=== PATIENT | male | born 1970 | race Two or more races ===

== ENCOUNTER → 2016-11-23 | Outpatient (CLI) | payer OTHER ==
--- NOTE | 2016-11-23 16:34 | REP ---
Chest two views HISTORY: Cigarette smoker Comparison: None The lungs are clear. The heart is normal in size. The pulmonary vasculature is normal in appearance. There is an old healed fracture of the left clavicle. There is an old compression fracture of a lower thoracic vertebral body. IMPRESSION: No acute disease. Signed by Julián Bueno MD 11/23/2016 04:26 P
== END ==
LOC: M ADAMS 15:17
PROVIDERS: ATTEND Physician Assistant Medical
DX: Z12.2 Encounter for screening for malignant neoplasm of respiratory organs (principal); F17.219 Nicotine dependence, cigarettes, with unspecified nicotine-induced disorders

== ENCOUNTER → 2016-11-23 | Outpatient (REF) | payer OTHER ==
[2016-11-23 20:11] LABS: ALBUMIN 4.3 GM/DL (3.2-5.2); ALBUMIN/GLOBULIN RATIO 1.26 (1.00-1.93); ALKALINE PHOSPHATASE 96 U/L (45-117); ALT/SGPT 20 U/L (12-78); ANION GAP 6 MEQ/L (8-16); AST/SGOT 13 U/L (15-37); BILIRUBIN,TOTAL 0.4 MG/DL (0.2-1.0); BLOOD UREA NITROGEN 12 MG/DL (7-18); CALCIUM LEVEL 9.2 MG/DL (8.5-10.1); CARBON DIOXIDE LEVEL 28 MEQ/L (21-32); CHLORIDE LEVEL 107 MEQ/L (98-107); CHOLESTEROL LEVEL 224 MG/DL (<200); CREATININE FOR GFR 1.04 MG/DL (0.70-1.30); FREE T4 1.09 NG/DL (0.76-1.46); GLOMERULAR FILTRATION RATE > 60.0 (>60); GLUCOSE, FASTING 99 MG/DL (70-105); POTASSIUM SERUM 4.1 MEQ/L (3.5-5.1); SODIUM LEVEL 141 MEQ/L (136-145); TOTAL PROTEIN 7.7 GM/DL (6.4-8.2); TRIGLYCERIDES LEVEL 207 MG/DL (<150)
[2016-11-23 20:20] LABS: BASO % 0.4 % (0.0-1.0); EOS # 0.1 K/mm3 (0.0-0.50); EOS % 1.3 % (0.0-3.0); LARGE UNSTAINED CELL # 0.1 K/mm3 (0.0-0.4); LARGE UNSTAINED CELL % 1.2 % (0.0-4.0); LYMPH # 1.5 K/mm3 (1.5-4.5); LYMPH % 18.4 % (24.0-44.0); MEAN CORPUSCULAR HEMOGLOBIN 31.3 pg (27.0-33.0); MEAN CORPUSCULAR HGB CONC 34.3 g/dl (32.0-36.5); MEAN CORPUSCULAR VOLUME 91.3 fl (80.0-96.0); MONO # 0.7 K/mm3 (0.0-0.8); MONO % 9.3 % (0.0-5.0); NEUTROPHILS # 5.4 K/mm3 (1.8-7.7); NEUTROPHILS % 69.3 % (36.0-66.0); PLATELET COUNT, AUTOMATED 270 k/mm3 (150-450); WHITE BLOOD COUNT 7.8 K/mm3 (4.0-10.0)
== END ==
LOC: M SFHCADAM 15:15
PROVIDERS: ATTEND Physician Assistant Medical
DX: R03.0 Elevated blood-pressure reading, without diagnosis of hypertension (principal); F17.219 Nicotine dependence, cigarettes, with unspecified nicotine-induced disorders; R06.09 Other forms of dyspnea

== ENCOUNTER → 2020-08-26 | Outpatient (CLI) | payer BC, OTHER ==
--- NOTE | 2020-08-27 07:52 | REP ---
INDICATION: SOB COMPARISON: 11/23/2016 TECHNIQUE: PA and lateral. FINDINGS: The mediastinum and cardiac silhouette are normal. The lung tiwari are clear and without acute consolidation, effusion, or pneumothorax. The skeletal structures are intact and normal. IMPRESSION: No acute cardiopulmonary process. <Electronically signed by Jonathan Holley > 08/27/20 0721
== END ==
LOC: M ADAMS 15:42
PROVIDERS: ATTEND Physician Assistant Medical
DX: R06.02 Shortness of breath (principal)

== ENCOUNTER → 2020-09-13 | Outpatient (CLI) | payer BC ==
[2020-09-13 11:55] LABS: BASO % 0.6 % (0.0-1.0); EOS # 0.3 10^3/uL (0.0-0.5); EOS % 3.5 % (0.0-3.0); HEMATOCRIT 42.8 % (42.0-52.0); HEMOGLOBIN 14.7 g/dl (13.5-17.5); LYMPH # 2.2 10^3/uL (1.5-5.0); MEAN CORPUSCULAR HEMOGLOBIN 31.2 pg (27.0-33.0); MEAN CORPUSCULAR HGB CONC 34.3 g/dl (32.0-36.5); MEAN CORPUSCULAR VOLUME 90.9 fl (80.0-96.0); MONO % 13.9 % (2.0-8.0); NEUTROPHILS # 3.6 10^3/uL (1.5-8.5); NEUTROPHILS % 50.6 % (36.0-66.0); PLATELET COUNT, AUTOMATED 278 10^3/uL (150-450); RED BLOOD COUNT 4.71 10^6/uL (4.30-6.10); WHITE BLOOD COUNT 7.1 10^3/uL (4.0-10.0)
[2020-09-13 12:35] LABS: ALBUMIN 4.2 GM/DL (3.2-5.2); ALT/SGPT 25 U/L (12-78); BILIRUBIN,TOTAL 0.5 MG/DL (0.2-1.0); BLOOD UREA NITROGEN 16 MG/DL (7-18); CALCIUM LEVEL 9.2 MG/DL (8.5-10.1); CARBON DIOXIDE LEVEL 28 MEQ/L (21-32); CHLORIDE LEVEL 102 MEQ/L (98-107); CHOLESTEROL LEVEL 214 MG/DL (<200); CHOLESTEROL RISK RATIO 5.783 (<5); CREATININE FOR GFR 0.86 MG/DL (0.70-1.30); GLOMERULAR FILTRATION RATE > 60.0 (>56); GLUCOSE, FASTING 110 MG/DL (70-100); HDL CHOLESTEROL 37 MG/DL (>40); LDL CHOLESTEROL 140 MG/DL (<100); NON-HDL-C 177 MG/DL; POTASSIUM SERUM 4.7 MEQ/L (3.5-5.1); SODIUM LEVEL 138 MEQ/L (136-145); THYROID STIMULATING HORMONE 0.722 uIU/ML (0.358-3.740); TOTAL PROTEIN 7.5 GM/DL (6.4-8.2); TRIGLYCERIDES LEVEL 183 MG/DL (<150)
[2020-09-16 10:35] LABS: TOTAL 25(OH) VITAMIN D 16.8 NG/ML (30.0-100.0)
== END ==
LOC: M LAB 11:37
PROVIDERS: ATTEND Physician Assistant Medical
DX: E78.2 Mixed hyperlipidemia (principal); E55.9 Vitamin D deficiency, unspecified; I10 Essential (primary) hypertension; F17.219 Nicotine dependence, cigarettes, with unspecified nicotine-induced disorders

== ENCOUNTER → 2020-09-17 | Outpatient (CLI) | payer BC, OTHER ==
--- NOTE | 2020-09-17 14:30 | PFTRPT ---
Height: 67.00 Inches Weight: 215.00 Lbs BSA: 2.09 Diagnosis: R06.02 DATE: 09/17/2020 ORDERED BY: Ayla Saleem PA-C Pre and post bronchodilator studies have excellent technical quality. Forced vital capacity is reduced. FEV1 is out of proportion. Obstructive index is therefore reduced. Expiratory limit of the flow-volume loop consistent with significant flow rate limitation. No bronchodilator response is identified. Total lung capacity is elevated. Residual volume is consistent with air trapping. Diffusing capacity is significantly reduced, but does correct for alveolar volume. No hemoglobin available for correction. Airway resistance and conductance are normal. IMPRESSION: [id number] obstructive ventilatory impairment with underlying air trapping. No bronchodilator response. Diffusing capacity appropriate for alveolar volume. Please correlate clinically. MTDD
== END ==
LOC: M CARPUL 14:02
PROVIDERS: ATTEND Physician Assistant Medical
DX: R06.02 Shortness of breath (principal)

== ENCOUNTER → 2021-03-27 | Outpatient (REF) | payer BC ==
[2021-03-27 16:50] LABS: ALBUMIN 4.6 GM/DL (3.2-5.2); ALT/SGPT 34 U/L (12-78); BILIRUBIN,TOTAL 0.6 MG/DL (0.2-1.0); BLOOD UREA NITROGEN 19 MG/DL (7-18); CALCIUM LEVEL 9.9 MG/DL (8.5-10.1); CARBON DIOXIDE LEVEL 31 MEQ/L (21-32); CHLORIDE LEVEL 99 MEQ/L (98-107); CHOLESTEROL LEVEL 138 MG/DL (<200); CHOLESTEROL RISK RATIO 3.631 (<5); CREATININE FOR GFR 1.04 MG/DL (0.70-1.30); GLOMERULAR FILTRATION RATE > 60.0 (>56); GLUCOSE, FASTING 101 MG/DL (70-100); HDL CHOLESTEROL 38 MG/DL (>40); LDL CHOLESTEROL 62 MG/DL (<100); NON-HDL-C 100 MG/DL; POTASSIUM SERUM 4.2 MEQ/L (3.5-5.1); SODIUM LEVEL 136 MEQ/L (136-145); THYROID STIMULATING HORMONE 0.501 uIU/ML (0.358-3.740); TOTAL PROTEIN 7.7 GM/DL (6.4-8.2); TRIGLYCERIDES LEVEL 190 MG/DL (<150)
== END ==
LOC: M SFHCPLAZ 14:03
PROVIDERS: ATTEND Physician Assistant Medical
DX: I10 Essential (primary) hypertension (principal); F17.219 Nicotine dependence, cigarettes, with unspecified nicotine-induced disorders; E55.9 Vitamin D deficiency, unspecified; E78.2 Mixed hyperlipidemia; K21.9 Gastro-esophageal reflux disease without esophagitis

== ENCOUNTER → 2021-09-25 | Outpatient (REF) | payer BC ==
[2021-09-25 17:14] LABS: ALBUMIN 4.5 GM/DL (3.2-5.2); ALT/SGPT 30 U/L (12-78); BILIRUBIN,TOTAL 0.6 MG/DL (0.2-1.0); BLOOD UREA NITROGEN 14 MG/DL (7-18); CALCIUM LEVEL 9.9 MG/DL (8.5-10.1); CARBON DIOXIDE LEVEL 28 MEQ/L (21-32); CHLORIDE LEVEL 102 MEQ/L (98-107); CHOLESTEROL LEVEL 148 MG/DL (<200); CHOLESTEROL RISK RATIO 4.484 (<5); GLOMERULAR FILTRATION RATE > 60.0 (>56); GLUCOSE, FASTING 98 MG/DL (70-100); HDL CHOLESTEROL 33 MG/DL (>40); LDL CHOLESTEROL 78 MG/DL (<100); NON-HDL-C 115 MG/DL; SODIUM LEVEL 138 MEQ/L (136-145); THYROID STIMULATING HORMONE 0.512 uIU/ML (0.358-3.740); TOTAL 25(OH) VITAMIN D 54.4 NG/ML (30.0-100.0); TOTAL PROTEIN 7.4 GM/DL (6.4-8.2); TRIGLYCERIDES LEVEL 185 MG/DL (<150)
== END ==
LOC: M SFHCADAM 13:56
PROVIDERS: ATTEND Physician Assistant Medical
DX: E78.2 Mixed hyperlipidemia (principal); I10 Essential (primary) hypertension; K21.9 Gastro-esophageal reflux disease without esophagitis

== ENCOUNTER → 2022-05-25 | Outpatient (CLI) | payer BC ==
[~2022-05-25] MED LIST: ACET-897 PO; ALBU8.5H INH; ASCO500C3 PO; ATOR40TA75 PO; CHLO125TA PO; CLAR10CA3 PO; FAMO20TA PO; GALZ50CA PO; INCR1INH INH; LISI20TA33 PO; METO1TAB7 PO; RA M500C PO; VITA200032 PO
== END ==
LOC: M LABSMTC 09:25
PROVIDERS: ATTEND Anesthesiology
DX: Z01.812 Encounter for preprocedural laboratory examination (principal); Z11.52 Encounter for screening for COVID-19

== ENCOUNTER 2022-05-28 07:28 | Day surgery (SDC) | payer BC ==
[~2022-05-28] VITALS: Ht 170.2 cm; Wt 95.7 kg
[~2022-05-28 07:28] MED LIST changes: +NS 1,000 ML IV ONE
[2022-05-28] MEDS ORDERED: LIDOCAINE 2% 100MG/5ML SDV (FOR ANES.) As Ordered ONE (08:14)
[2022-05-28] MEDS ORDERED: propofoL 200 MG/20 ML VIAL As Ordered ONE (08:14)
[2022-05-28] MEDS ORDERED: GLUCAGON INJ 1MG VIAL As Ordered ONE (09:16)
[2022-05-28 09:32] VITALS: BP 132/84
== END 2022-05-28 09:41 | disposition home or self-care (01) ==
LOC: M OPP 07:28
PROVIDERS: ATTEND Internal Medicine Gastroenterology
DX: Z12.11 Encounter for screening for malignant neoplasm of colon (principal); Z80.0 Family history of malignant neoplasm of digestive organs; D12.2 Benign neoplasm of ascending colon; D12.5 Benign neoplasm of sigmoid colon; K57.30 Diverticulosis of large intestine without perforation or abscess without bleeding; K64.8 Other hemorrhoids; I10 Essential (primary) hypertension; E78.00 Pure hypercholesterolemia, unspecified; J44.9 Chronic obstructive pulmonary disease, unspecified; F17.200 Nicotine dependence, unspecified, uncomplicated; Z79.02 Long term (current) use of antithrombotics/antiplatelets; Z79.51 Long term (current) use of inhaled steroids; Z79.899 Other long term (current) drug therapy; Z88.0 Allergy status to penicillin; Z88.6 Allergy status to analgesic agent
CPT/HCPCS: 45385; 88305; J1610

== ENCOUNTER → 2022-10-01 | Outpatient (REF) | payer BC ==
[~2022-10-01] MED LIST changes: -NS 1,000 ML IV ONE
[2022-10-01 14:45] LABS: BASO % 0.5 % (0.0-1.0); EOS # 0.2 10^3/uL (0.0-0.5); EOS % 2.1 % (0.0-3.0); HEMATOCRIT 41.4 % (42.0-52.0); HEMOGLOBIN 14.1 g/dl (13.5-17.5); LYMPH # 2.9 10^3/uL (1.5-5.0); LYMPH % 33.5 % (24.0-44.0); MEAN CORPUSCULAR HEMOGLOBIN 31.3 pg (27.0-33.0); MEAN CORPUSCULAR HGB CONC 34.1 g/dl (32.0-36.5); MEAN CORPUSCULAR VOLUME 91.8 fl (80.0-96.0); MONO # 0.9 10^3/uL (0.0-0.8); MONO % 10.8 % (2.0-8.0); NEUTROPHILS # 4.5 10^3/uL (1.5-8.5); NEUTROPHILS % 52.7 % (36.0-66.0); PLATELET COUNT, AUTOMATED 333 10^3/uL (150-450); RED BLOOD COUNT 4.51 10^6/uL (4.30-6.10); WHITE BLOOD COUNT 8.5 10^3/uL (4.0-10.0)
[2022-10-01 15:15] LABS: ALBUMIN 4.4 G/DL (3.2-5.2); ALKALINE PHOSPHATASE 92 U/L (46-116); ALT/SGPT 36 U/L (7.0-40); AST/SGOT 15 U/L (<34); BILIRUBIN,TOTAL 0.7 MG/DL (0.3-1.2); BLOOD UREA NITROGEN 17 MG/DL (9-23); CALCIUM LEVEL 9.1 MG/DL (8.5-10.1); CARBON DIOXIDE LEVEL 31 MMOL/L (20-31); CHLORIDE LEVEL 100 MMOL/L (98-107); CHOLESTEROL LEVEL 143 MG/DL (<200); CHOLESTEROL RISK RATIO 3.95 (<5); CREATININE FOR GFR 0.94 MG/DL (0.70-1.30); GLOMERULAR FILTRATION RATE > 60.0 (>56); GLUCOSE, FASTING 94 MG/DL (60-100); HDL CHOLESTEROL 36.2 MG/DL (>40); LDL CHOLESTEROL 58.4 MG/DL (<100); NON-HDL-C 106.8 MG/DL; POTASSIUM SERUM 4.3 MMOL/L (3.5-5.1); SODIUM LEVEL 134 MMOL/L (136-145); TRIGLYCERIDES LEVEL 242 MG/DL (<150)
== END ==
LOC: M SFHCADAM 13:14
PROVIDERS: ATTEND Physician Assistant Medical
DX: I10 Essential (primary) hypertension (principal); E55.9 Vitamin D deficiency, unspecified; E78.2 Mixed hyperlipidemia

== ENCOUNTER → 2023-10-03 | Outpatient (REF) | payer BC ==
[2023-10-03 18:07] LABS: ALBUMIN 4.2 G/DL (3.2-5.2); ALKALINE PHOSPHATASE 99 U/L (46-116); ALT/SGPT 28 U/L (7.0-40); AST/SGOT 14 U/L (<34); BILIRUBIN,TOTAL 0.4 MG/DL (0.3-1.2); BLOOD UREA NITROGEN 22 MG/DL (9-23); CALCIUM LEVEL 9.6 MG/DL (8.5-10.1); CARBON DIOXIDE LEVEL 30 MMOL/L (20-31); CHLORIDE LEVEL 103 MMOL/L (98-107); CHOLESTEROL LEVEL 140 MG/DL (<200); CHOLESTEROL RISK RATIO 3.77 (<5); CREATININE FOR GFR 1.15 MG/DL (0.70-1.30); GLOMERULAR FILTRATION RATE > 60.0 (>56); GLUCOSE, FASTING 116 MG/DL (60-100); HDL CHOLESTEROL 37.1 MG/DL (>40); LDL CHOLESTEROL 58.1 MG/DL (<100); NON-HDL-C 102.9 MG/DL; SODIUM LEVEL 140 MMOL/L (136-145); THYROID STIMULATING HORMONE 1.249 uIU/ML (0.55-4.78); TOTAL PROTEIN 6.7 G/DL (5.7-8.2); TRIGLYCERIDES LEVEL 224 MG/DL (<150)
[2023-10-03 18:09] LABS: BASO # 0.1 10^3/uL (0.0-0.2); BASO % 0.7 % (0.0-1.0); EOS # 0.2 10^3/uL (0.0-0.5); EOS % 2.2 % (0.0-3.0); HEMATOCRIT 42.3 % (42.0-52.0); HEMOGLOBIN 14.5 g/dl (13.5-17.5); LYMPH # 2.5 10^3/uL (1.5-5.0); LYMPH % 28.2 % (24.0-44.0); MEAN CORPUSCULAR HEMOGLOBIN 32.1 pg (27.0-33.0); MEAN CORPUSCULAR HGB CONC 34.3 g/dl (32.0-36.5); MEAN CORPUSCULAR VOLUME 93.6 fl (80.0-96.0); MONO % 11.6 % (2.0-8.0); NEUTROPHILS % 57.1 % (36.0-66.0); PLATELET COUNT, AUTOMATED 315 10^3/uL (150-450); RED BLOOD COUNT 4.52 10^6/uL (4.30-6.10); WHITE BLOOD COUNT 8.8 10^3/uL (4.0-10.0)
== END ==
LOC: M SFHCADAM 13:08
PROVIDERS: ATTEND Physician Assistant Medical
DX: I10 Essential (primary) hypertension (principal); E78.2 Mixed hyperlipidemia; E55.9 Vitamin D deficiency, unspecified; K21.9 Gastro-esophageal reflux disease without esophagitis

== ENCOUNTER → 2024-12-04 | Outpatient (REF) | payer BC ==
[~2024-12-04] MED LIST changes: -GALZ50CA PO; +ZINC50CA4 PO
[2024-12-04 14:45] LABS: BASO # 0.1 10^3/uL (0.0-0.2); BASO % 0.7 % (0.0-1.0); EOS # 0.1 10^3/uL (0.0-0.5); EOS % 1.2 % (0.0-3.0); LYMPH # 2.5 10^3/uL (1.5-5.0); LYMPH % 27.6 % (24.0-44.0); MONO # 1.0 10^3/uL (0.0-0.8); MONO % 11.4 % (2.0-8.0); NEUTROPHILS # 5.2 10^3/uL (1.5-8.5); NEUTROPHILS % 58.8 % (36.0-66.0); PLATELET COUNT, AUTOMATED 320 10^3/uL (150-450)
[2024-12-04 14:50] LABS: ESTIMATED AVERAGE GLUCOSE 114.0 MG/DL (60-110)
[2024-12-04 15:01] LABS: CREATININE, URINE 34.3 MG/DL; MALB URINE SIEMENS < 3.0 MG/L
[2024-12-04 15:02] LABS: ALT/SGPT 32 U/L (7.0-40); AST/SGOT 26 U/L (<34); CALCIUM LEVEL 9.7 MG/DL (8.5-10.1); CARBON DIOXIDE LEVEL 32 MMOL/L (20-31); CHLORIDE LEVEL 102 MMOL/L (98-107); CHOLESTEROL LEVEL 133 MG/DL (<200); CHOLESTEROL RISK RATIO 3.26 (<5); CREATININE FOR GFR 0.96 MG/DL (0.70-1.30); GLOMERULAR FILTRATION RATE > 90.0 (>56); LDL CHOLESTEROL 74.1 MG/DL (<100); NON-HDL-C 92.3 MG/DL; POTASSIUM SERUM 4.2 MMOL/L (3.5-5.1); SODIUM LEVEL 141 MMOL/L (136-145); TRIGLYCERIDES LEVEL 91 MG/DL (<150)
== END ==
LOC: M SFHCADAM 08:10
PROVIDERS: ATTEND Physician Assistant Medical
DX: I10 Essential (primary) hypertension (principal); E78.2 Mixed hyperlipidemia; F17.219 Nicotine dependence, cigarettes, with unspecified nicotine-induced disorders; E55.9 Vitamin D deficiency, unspecified; K21.9 Gastro-esophageal reflux disease without esophagitis; J43.1 Panlobular emphysema; R73.01 Impaired fasting glucose